=== PATIENT | female | born 1990 | race African-American/Black ===

== ENCOUNTER 2017-10-18 11:15 | Emergency (ER) | payer OTHER ==
[~2017-10-18] VITALS: Ht 157.5 cm; Wt 60.0 kg
[~2017-10-18 11:15] MED LIST: CYCL5TAB PO; NAPR-576 PO
[2017-10-18 11:24] VITALS: BP 152/65; PULSE 81; RESP 19; TEMP 98.1; O2SAT 100
[2017-10-18] MEDS ORDERED: CEPH-460 PO (12:35)
[2017-10-18] MEDS ORDERED: NABU1TAB37 PO (12:35)
--- NOTE | 2017-10-18 12:35 | PD ---
HPI . Foot pain Chief Complaint: Edema Time Seen by Provider: 12:10 Travel History International Travel<30 days: No Contact w/Intl Traveler<30days: No Traveled to known affect area: No History of Present Illness HPI Patient presents with pain and swelling of her right foot. She states that she trimmed a callus 2 days ago. She awakened the next day with pain and swelling. She states that she had some leftover penicillin which she took and which did help. However, she does not have anymore penicillin. She rates the pain 8/10 and states that the pain is exacerbated by walking on her foot. PFSH Past Medical History ?: Not LMP: 09/21/17 Past Surgical History Cardiac Surgery: Yes (PT STS THAT SHE THINKS SHE HAD A HOLE IN HER HEART AT AND WAS REPAIRE) Social History Alcohol Use: No Tobacco Use: Yes (1/2 PPD) Substance Use: Yes (K-S SYNTHETIC POT) Allergies-Medications (Allergen,Severity, Reaction): Coded Allergies: No Known Allergies (Verified Adverse Reaction, Unknown, 10/18/17) Reported Meds & Prescriptions Reported Meds & Active Scripts Active Flexeril (Cyclobenzaprine HCl) 5 Mg Tab 5 Mg PO Q8H PRN Naproxen 500 Mg Tab 500 Mg PO Q12HR PRN Review of Systems Except as stated in HPI: all other systems reviewed are Neg Physical Exam Narrative GENERAL: Awake and alert and in no acute distress. SKIN: Warm and dry. She has a plantar wart on the right foot at the base of the second toe. There is some surrounding redness. It is tender to the touch. HEAD: Normocephalic/atraumatic. EYES: Pupils are equal. Extraocular movements are intact. NECK: Normal range of motion. CARDIOVASCULAR: Regular rate and rhythm. RESPIRATORY: Nonlabored respirations. MUSCULOSKELETAL: Atraumatic. NEUROLOGICAL: Nonfocal. PSYCHIATRIC: Appropriate mood and affect. Data Data Last Documented VS Vital Signs Date Time Temp Pulse Resp B/P (MAP) Pulse Ox O2 Delivery O2 Flow Rate FiO2 10/18/17 11:24 98.1 81 19 152/65 (94) 100 MDM Medical Decision Making Medical Screen Exam Complete: Yes Emergency Medical Condition: Yes Differential Diagnosis My differential diagnosis includes but is not limited to localized wound infection, cellulitis, abscess Narrative Course This patient presents with pain, redness and swelling on the plantar aspect of her right foot after she "trimmed a callus." On exam, she has some very mild erythema surrounding a plantar wart. I will discharge her with Keflex. I will give her a referral to podiatry. Diagnosis Primary Impression: Cellulitis Qualified Codes: L03.115 - Cellulitis of right lower limb Additional Impression: Plantar wart Referrals: Joseline Orosco DPM Patient Instructions: General Instructions, Plantar Wart (DC) Med/Other Pt SpecificInfo: Prescription(s) given Scripts Nabumetone (Nabumetone) 500 Mg Tab 500 MG PO BID for Pain-Inflammation, #60 TAB 0 Refills Prov: Regi Peters MD 10/18/17 Cephalexin (Keflex) 500 Mg Capsule 500 MG PO TID for Infection for 10 Days, CAP 0 Refills Prov: Regi Peters MD 10/18/17 Disposition: 01 DISCHARGE HOME Condition: Stable Regi Peters MD October 18, 2017 12:35
== END 2017-10-18 12:42 | disposition home or self-care (01) ==
LOC: NEPD 11:15
DX: L03.115 Cellulitis of right lower limb (principal); B07.0 Plantar wart; F17.200 Nicotine dependence, unspecified, uncomplicated
CPT/HCPCS: 99283